=== PATIENT | male | born 1945 ===

== ENCOUNTER 2021-12-27 06:14 | Emergency (ER) | payer OTHER ==
--- OUTSIDE RECORDS SUMMARY | 2021-12-27 06:18 | XMS REPORT | Continuity of Care Document ---
:[address] [facility] t Address [address] [place] [address] Care Team Providers Name Role Phone SANJAY Attending Clinician Unavailable Bernstein_H Attending Clinician Unavailable ELIZABETH Attending Clinician Unavailable Bernstein_H Admitting Clinician Unavailable Payers Payer Name Policy Type Policy Number Effective Date Expiration Date S ource [place]IC[place]: [id number] 2007 [place] 00:00:00 [facility] [id number] Problems Condition Condition Condition Status Onset Resolution Last Treating Co mments Source Name Details Category Date Date Treatment Clinician Date History of History of Problem Resolve [facility] backache backache d [facility] [place] [facility] History of History of Problem Resolve [facility] hemorrhoid hemorrhoid d it y of s s [place] [facility] History of History of Problem Resolve [facility] hypertensi hypertensi d it y of on on [place] [facility] History of History of Problem Resolve [facility] kidney kidney d ity of disease disease [place] [facility] History of History of Problem Resolve [facility] malignant malignant d ity of neoplasm neoplasm [place] [facility] Left knee Left knee Problem Active Uni vers pain pain [facility] of [place] [facility] Primary Primary Problem Active Univers localized localized [place] of [place]oarth[place] of Physici left knee left knee ans Traumatic Traumatic Problem Active Uni vers arthritis arthritis ity of of left of left [place] knee knee Physici ans Allergies, Adverse Reactions, Alerts Allergy Allergy Status Severity Reaction(s) Onset Inactive Treating Comm ents Source Name Type Date Date Clinician morphine DA Active [facility] 03[facility]20 [facility] 00:00: e 00 [facility] codeine DA Active [facility] 5 [facility] 00:00: e 00 [facility] acetamin DA Active [facility]hen 03-20 [facility] 00:00: e 00 [facility] Aspirin Allergy Active Univers TABS to drug ity of (finding [place] ) Physici ans Morphine Allergy Active Univers Derivati to drug ity of ves (finding [place] ) Physici ans Sulfa Allergy Active Univers Drugs to drug ity of (finding [place] ) Physici ans Adhesive Allergy Active Univers Tape to ity of substanc [place] e Physici (finding ans ) Family History Family Member Diagnosis Comments Start Date Stop Date Source Mother Family history of [facility] [place] High blood pressure Physi cians (not hypertension) Mother Family history of [facility] [place] arthritis Physicians Father Family history of [facility] [place] High blood pressure Physi cians (not hypertension) Father Family history of [facility] [place] High cholesterol Physicia ns Father Family history of [facility] [place] malignant neoplasm Physic ians Father Family history of [facility] [place] Gout, joint Physicians Brother Family history of [facility] [place] High blood pressure Physi cians (not hypertension) Brother Family history of [facility] [place] High cholesterol Physicia ns Social History Smoking Status Start Date Stop Date Source Never smoked tobacco (finding) [facility] Physicians Medications Ordered Filled Start Stop Current Ordering Indication Dosage Frequency Signature Comments Components Source Medication Medication Date Date Medication? Clinician (SIG) Name Name Cozaar 100 Cozaar 100 Yes Uni vers MG Oral MG Oral ity of Tablet Tablet [place] [facility] Zocor 40 MG Zocor 40 MG Yes U nivers Oral Tablet Oral Tablet i ty of [place] [facility] Ambien 10 Ambien 10 Yes Unive rs MG Oral MG Oral ity of Tablet Tablet [place] [facility] Simvastatin Simvastatin Yes U nivers TABS TABS ity of [place] [facility] ans Vital Signs Vital Name Observation Time Observation Value Comments Source BP Systolic 2019-09-18 136 mm[Hg] [facility] 13:27:00 [place] Physician s BP Diastolic 2019-09-18 87 mm[Hg] [facility] 13:27:00 [place] [facility] Weight 2019-09-18 198 [lb_av] University 13:27:00 [place] [facility] Body Mass Index 2019-09-18 28.41 kg/m2 University o f Calculated 13:27:00 [place] [facility] Heart Rate 2019-09-18 74 /min [facility] of 13:27:00 [place] [facility] BP Systolic 2019-02-05 147 mm[Hg] Location: [facility]; [facility] 13:13:00 Position: [place] Physician s Sitting BP Diastolic 2019-02-05 81 mm[Hg] Location: [facility]; [facility] 13:13:00 Position: [place] Physician s Sitting Height 2019-02-05 70 [in_us] [facility] of 13:13:00 [place] Physician s Weight 2019-02-05 210 [lb_av] [facility] of 13:13:00 [place] [facility] s Body Mass Index 2019-02-05 30.13 kg/m2 University o f Calculated 13:13:00 [place] [facility] s Heart Rate 2019-02-05 73 /min Location: R [facility] 13:13:00 Radial; [place] [facility]ician [facility] BP Systolic 2018-12-06 132 mm[Hg] Location: [facility]; [facility] 13:52:00 Position: [place] Physician s Sitting BP Diastolic 2018-12-06 83 mm[Hg] Location: [facility] 13:52:00 Position: [place] Physician s Sitting Weight 2018-12-06 213 [lb_av] University of 13:52:00 [place] [facility] s Body Mass Index 2018-12-06 30.56 kg/m2 University o f Calculated 13:52:00 [place] Physician s Heart Rate 2018-12-06 100 /min University of 13:52:00 [place] Physician s BP Systolic 2018-05-22 137 mm[Hg] Location: [facility]; [facility] 12:25:00 Position: [place] Physician s Sitting BP Diastolic 2018-05-22 79 mm[Hg] Location: [place]; [facility] 12:25:00 Position: [place] Physician s Sitting Height 2018-05-22 70 [in_us] [facility] of 12:25:00 [place] Physician s Weight 2018-05-22 209 [lb_av] [facility] of 12:25:00 [place] [facility] s Body Mass Index 2018-05-22 29.99 kg/m2 University o f Calculated 12:25:00 [place] [facility] s Heart Rate 2018-05-22 69 /min Location: [facility]l [facility] 12:25:00 Radial; [place] [facility]ician [facility] BP Systolic 2017-11-02 125 mm[Hg] Location: [place]; [facility] 10:05:00 Position: [place] Physician s Sitting BP Diastolic 2017-11-02 83 mm[Hg] Location: R[facility]; [facility] 10:05:00 Position: [place] Physician s Sitting Weight 2017-11-02 215 [lb_av] [facility] 10:05:00 [place] [facility] s Body Mass Index 2017-11-02 30.85 kg/m2 University o f Calculated 10:05:00 [place] [facility] s Heart Rate 2017-11-02 81 /min [facility] 10:05:00 [place] [facility]ician s Procedures Procedure Date / Time Performing Clinician Source Performed [U] XRAY KNEE 3 VWS 2017-11-02 00:00:00 [facility] LEFT [id number] Physicians History of Total Knee [facility] Arthroplasty Physicians History of Prostate Bolt o [facility] Surgery Physicians History of Back Surgery [facility] Physicians Encounters Start End Encounter Admission Attending Care Care Encounter Source Date/Time Date/Time Type Type Clinicians Facility Department ID 2021-02-09 2021-02-09 Outpatient SANJAY, [facility] [id number] 00:00:00 00:00:[address] [address] 2021-01-19 2021-01-19 Outpatient [facility] [id number] [address] [place] [address] 00:00:00 00:00:[address] 2020-12-03 2020-12-03 Outpatient Bernstein_H VFP VFP [id number] [facility] 12:13:00 12:13:00 [id number] Family Practic e 2019-09-18 2019-09-18 Appointmen MARSHALL MARSH Orthopedics [id number] [facility] 13:00:00 13:00:00 tFREDDIE Liang - [place] i ty of ELIUDCECI Carvalho [facility] FREDDIE [place] Physi ci M.D. ans 2019-03-19 2019-03-19 Appointmen MARSHALL MARSH [place] 52 [id number] [facility] 13:00:00 13:00:00 FREDDIE [facility] ity [facility] FREDDIE [place], Physi ci M.DMercy ans 2019-02-05 2019-02-05 Appointmen MARSHALL MARSH [place] 50 [id number] [facility] 13:15:00 13:15:00 [facility] [place] [facility] [place] [place], Physi ci M.D. ans 2018-12-06 2018-12-06 [facility] [id number] Univers 14:00:00 14:00:00 t; FREDDIE Pagan - [place] i ty of KLINE-BAR M.D. II [place] RE, FREDDIE, Physi ci M.D. ans 2018-05-22 2018-05-22 [facility] 43 [id number] Univers 11:30:00 11:30:00 t; FREDDIE Pagan, Orthopedics ity of KLINE[facility]. [facility] FREDDIE, Physi ci M.D. ans 2018-05-01 2018[id number] Univers 10:45:00 10:45:00 t; FREDDIE Pagan, ity of KLINE-BAR M.D. [place] RE, FREDDIE, Physi ci M.D. ans 2017-11-02 2017[facility] [id number] Univers 09:30:00 09:30:00 t; FREDDIE Pagan - [place] i ty of KLINE-BAR M.D. II [place] RE, FREDDIE, Physi ci M.D. ans 2017-03-14 2017-03-14 [facility] [id number] Univers 10:45:00 10:45:00 t; FREDDIE Pagan, ity of KLINE-BAR M.D. [place] RE, FREDDIE, Physi ci M.D. ans 2017-01-19 2017-01-19 [id number] Univers 09:45:00 09:45:00 t; EDORYSA, ity of KLINE-BAR M.D. [place] RE, FREDDIE, Physi ci M.D. ans 2015-12-22 2015-12-22 [id number] Univers 11:00:00 11:00:00 t; EDORYSA, ity of KLINE-BAR M.D. [place] RE, FREDDIE, Physi ci M.D. ans Results Test Description Test Time Test Comments Results Result Sour e Comments [U] XRAY KNEE 3 2018-12-06 Images [facility] of S LEFT [id number] 14:22:00 acquired, not [place] reported on Physicians this accession number. [U] XRAY KNEE 3 2017-11-02 Images Universit y of S LEFT [id number] 10:16:00 acquired, not [place] reported on Physicians this accession number.
[2021-12-27 06:58] LABS: Absolute Lymphocytes (CBC) 1.1 K/uL (0.7-4.9); Hematocrit 37.6 % (39.6-49.0); Lymphocytes % 13.8 % (15.3-44.8); MPV 6.9 fL (7.6-11.3); RBC Red Blood Cell Count 4.26 M/uL (4.33-5.43)
[2021-12-27 06:59] LABS: Urine Blood 2+ (Negative); Urine Glucose Negative (Negative); Urine Protein Negative (Negative); Urine Specific Gravity 1.015 (1.005-1.030)
[2021-12-27 07:24] LABS: Albumin 3.4 g/dL (3.4-5.0); Bilirubin Direct 0.1 mg/dL (0-0.2); Bilirubin Total 0.4 mg/dL (0.2-1.0); Potassium 4.2 mmol/L (3.5-5.1); Protein, Total 7.3 g/dL (6.4-8.2)
--- NOTE | 2021-12-27 08:19 | RAD REPORT ---
EXAM DESCRIPTION: CTAbdomen Pelvis W Contrast - 12/27/2021 8:02 am CLINICAL HISTORY: left flank pain COMPARISON: No comparisons TECHNIQUE: CT of the abdomen and pelvis was performed. All CT scans are performed using dose optimization technique as appropriate and may include automated exposure control or mA/KV adjustment according to patient size. FINDINGS: Lower chest: Irregular pulmonary nodule in the right lower lobe with peripheral micro nodu larity. This could be metastatic disease or sequela of prior infection. Liver: Multiple low-density lesions are present in the liver. These have overall benign imaging featu res. Biliary: No biliary ductal dilatation. Stomach: No significant focal abnormality. Duodenum: No significant focal abnormality. Pancreas: No significant abnormality. Spleen: No significant abnormality. Adrenal: Left adrenal thickening but no discrete mass. Kidney/ureter: No hydronephrosis. Left renal mass invading the left renal vein and IVC. The mass has some calcifications. It measures 6.8 cm. It contacts Gerota's fascia. A couple of probable renal cyst s are noted. Retroperitoneum: Enlarged retroperitoneal lymph nodes 1 measures 10 millimeters for example. Vascular: No aneurysm. There is thrombus extending from the left renal vein into the IVC. The IVC is patent, however. Bowel: No significant focal abnormality. Peritoneum: No ascites or free air. Bladder: Grossly unremarkable. Reproductive: No adnexal masses. Left-sided varicocele. This is presumably as result of the renal mas s and renal vein invasion. Bones: No acute fracture. Multilevel degenerative changes are present in the spine. Other: n/a IMPRESSION: Left renal neoplasm consistent with renal cell carcinoma with renal vein and IVC invasio n. Enlarged retroperitoneal lymph nodes noted likely reflecting metastatic disease. Indeterminate mirta g nodule. The neoplasm contacts Gerota's fascia.
--- NOTE | 2021-12-27 08:38 | ER ---
Nurse's Notes [facility] Name: Everett Miles Age: 76 yrs Sex: Male : 1945 Arrival Date: 12/27/2021 Time: 06:18 Bed 7 Private MD: Diagnosis: Renal mass Presentation: 12/27 06:51 Chief complaint: Patient states: The patient states he is having abdominal pain. st1 Coronavirus screen: Vaccine status: Patient reports receiving the 2nd dose of the covid vaccine. Pfizer. Ebola Screen: No symptoms or risks identified at this time. Initial Sepsis Screen: Does the patient meet any 2 criteria? No. Patient's initial sepsis screen is negative. Does the patient have a suspected source of infection? No. Patient's initial sepsis screen is negative. Risk Assessment: Do you want to hurt yourself or someone else? Patient reports no desire to harm self or others. 06:55 Onset of symptoms was December 26, 2021. st1 06:55 Acuity: JEFF 3 st1 06:56 Method Of Arrival: Ambulatory st1 Triage Assessment: 06:56 General: Appears in no apparent distress. comfortable, Behavior is calm, cooperative. st1 Pain: Complains of pain in Abdomin Pain currently is 6 out of 10 on a pain scale. GI: No deficits noted. Historical: - Allergies: 06:54 Aspirin; st1 06:54 Sulfa (Sulfonamide Antibiotics); st1 06:54 Tape; st1 - PMHx: 06:54 Hypertensive disorder; Hypercholesterolemia; st1 - Immunization history:: Client reports receiving the 2nd dose of the Covid vaccine, Pfizer Pneumococcal vaccine is not up to date, Flu vaccine is up to date. - Social history:: Smoking status: Patient denies any tobacco usage or history of. Patient/guardian denies using alcohol, street drugs, IV drugs. Screenin:36 Abuse screen: Denies threats or abuse. Nutritional screening: No deficits noted. st1 Tuberculosis screening: No symptoms or risk factors identified. Fall Risk None identified. No secondary diagnosis (0 pts). IV access (20 points). Ambulatory Aid- None/Bed Rest/Nurse Assist (0 pts). Gait- Normal/Bed Rest/Wheelchair (0 pts) Mental Status- Oriented to own ability (0 pts). Total Valverde Fall Scale indicates No Risk (0-24 pts). Assessment: 06:57 GI: GI: Bowel sounds present X [address]ads[address] st1 07:57 Reassessment: Patient appears in no apparent distress at this time. Patient and/or ph family updated on plan of care and expected duration. Pain level reassessed. Patient is alert, oriented x 3, equal unlabored respirations, skin warm/dry/pink. Pt taken to CT. 08:03 Reassessment: transported to CT scan via Wheelchair. ww 08:49 Reassessment: Patient appears in no apparent distress at this time. Patient and/or ph family updated on plan of care and expected duration. Pain level reassessed. Patient is alert, oriented x 3, equal unlabored respirations, skin warm/dry/pink. Pt d/c home. Vital Signs: 07:09 BP 112 / 73; Pulse 72; Resp 18; Pulse Ox 99% on R/A; ph 08:26 Temp 97.5(TE); ph 08:49 BP 118 / 78; Pulse 71; Resp 18; Temp 97.4; Pulse Ox 99% on R/A; ph ED Course: 06:18 Patient arrived in ED. ja2 06:28 Ang Jordan PA is PHCP. [facility] 06:28 Hua Gomez MD is Attending Physician. [facility] 06:36 Sophia Harrell, DARSHAN is Primary Nurse. st1 06:45 Inserted saline lock: 20 gauge in right antecubital area, using aseptic technique. st1 06:50 Basic Metabolic Panel Sent. st1 06:50 Lipase Sent. st1 06:50 Hepatic Function Sent. st1 06:50 CBC with Diff Sent. st1 06:50 Basic Metabolic Panel Sent. st1 06:50 CBC with Automated Diff Sent. st1 06:56 Triage completed. st1 06:56 Arm band placed on right wrist. st1 06:57 No provider procedures requiring assistance completed. st1 06:57 Patient has correct armband on for positive identification. Placed in gown. Bed in low st1 position. Call light in reach. Side rails up X 1. Pulse ox on. NIBP on. Verbal reassurance given. 08:02 CT Abd/Pelvis - IV Contrast Only In Process Unspecified. EDMS 08:49 IV discontinued, intact, bleeding controlled, No redness/swelling at site. Pressure ph dressing applied. Administered Medications: No medications were administered Outcome: 08:37 Discharge ordered by MD. evans 08:49 Discharged to home ambulatory. ph 08:49 Condition: good 08:49 Discharge instructions given to patient, Instructed on discharge instructions, follow up and referral plans. Demonstrated understanding of instructions, follow-up care. 08:50 Patient left the ED. ph Signatures: Dispatcher [employer] EDMS Ang Jordan PA PA jmm Hall, Patricia, RN RN [facility] Whitney, RN RN Sophia Harrell RN RN st1 Corrections: (The following items were deleted from the chart) 06:57 06:51 Method Of Arrival: Ambulatory st1 st1
--- NOTE | 2021-12-27 08:38 | EDPHYS ---
Physician Documentation [facility] Name: Everett Miles Age: 76 yrs Sex: Male : 1945 Arrival Date: 12/27/2021 Time: 06:18 Bed 7 Private MD: MARIANO Physician Hua Gomez HPI: 12/27 06:35 This 76 yrs old Male presents to ER via Ambulatory with complaints of Low Back Pain, jmm Abdominal Pain. 06:35 The patient presents with pain that is chronic, with no known mechanism of injury. The jmm symptoms are located in the left low back and left mid back. The pain radiates. 07:39 Onset: The symptoms/episode began/occurred gradually. Modifying factors: The patient jmm symptoms are alleviated by nothing, the patient symptoms are aggravated by any movement. Associated signs and symptoms: Pertinent negatives: fever. This is a 76-year-old male with history of hypertension and hyperlipidemia the presents emerged department with complaints of left lower back pain which he states is chronic cannot give an exact time of onset. But states that pain approximately 3 weeks ago he developed hematuria and was prescribed oral antibiotics. Patient states he finished that course but states last night developed increased pain to the left lower back radiating to the left leg but it also states having some bilateral epigastric pain to the left upper and right upper quadrant. Denies fever, chest pain, shortness of breath, vomiting, diarrhea. Denies hematochezia. Historical: - Allergies: 06:54 Aspirin; st1 06:54 Sulfa (Sulfonamide Antibiotics); st1 06:54 Tape; st1 - PMHx: 06:54 Hypertensive disorder; Hypercholesterolemia; st1 - Immunization history:: Client reports receiving the 2nd dose of the Covid vaccine, Pfizer Pneumococcal vaccine is not up to date, Flu vaccine is up to date. - Social history:: Smoking status: Patient denies any tobacco usage or history of. Patient/guardian denies using alcohol, street drugs, IV drugs. ROS: 07:39 Constitutional: Negative for fever, chills, and weight loss, Cardiovascular: Negative jmm for chest pain, palpitations, and edema, Respiratory: Negative for shortness of breath, cough, wheezing, and pleuritic chest pain. 07:39 Back: Positive for pain with movement. 07:39 : Positive for urinary symptoms, Negative for testicular pain 07:39 All other systems are negative. Exam: 07:39 Constitutional: This is a well developed, well nourished patient who is awake, alert, jmm and in no acute distress. Head/Face: atraumatic. Eyes: EOMI, no conjunctival erythema appreciated ENT: Moist Mucus Membranes Neck: Trachea midline, Supple Chest/axilla: Normal chest wall appearance and motion. Cardiovascular: Regular rate and rhythm. No edema appreciated Respiratory: Normal respirations, no respiratory distress appreciated 07:39 Back: Normal ROM Skin: General appearance color normal MS/ Extremity: Moves all extremities, no obvious deformities appreciated, no edema noted to the lower extremities Neuro: Awake and alert Psych: Behavior is normal, Mood is normal, Patient is cooperative and pleasant 07:39 Abdomen/GI: Inspection: abdomen appears normal, Bowel sounds: normal, Palpation: soft, mild abdominal tenderness, in the right upper quadrant and left upper quadrant. 07:39 Neuro: Extensor hallucis longus intact bilaterally. 07:39 Psych: Behavior/mood is pleasant, cooperative. Vital Signs: 07:09 BP 112 / 73; Pulse 72; Resp 18; Pulse Ox 99% on R/A; ph 08:26 Temp 97.5(TE); ph 08:49 BP 118 / 78; Pulse 71; Resp 18; Temp 97.4; Pulse Ox 99% on R/A; ph MDM: 06:35 Patient medically screened. [facility] 08:36 Data reviewed: vital signs, nurses notes. Counseling: I had a detailed discussion with [facility] the patient and/or guardian regarding: the historical points, exam findings, and any diagnostic results supporting the discharge/admit diagnosis, lab results, radiology results, the need for outpatient follow up, to return to the emergency department if symptoms worsen or persist or if there are any questions or concerns that arise at home. ED course: Reviewed labs and imaging studies with the patient a long with discussion of left renal mass which is most likely malignant. Patient stated that he would prefer to follow with his primary care provider to ultimately coordinate care. Patient's labs were unremarkable. Vital signs are normal. I do not suspect pyelonephritis or an acutely threatening process.. 12/27 06:39 Order name: Basic Metabolic Panel [facility] 12/27 06:39 Order name: CBC with Diff [facility] 12/27 06:39 Order name: Hepatic Function; Complete Time: 07:53 [facility] 12/27 06:39 Order name: Lipase; Complete Time: 07:53 [facility] 12/27 06:39 Order name: Basic Metabolic Panel; Complete Time: 07:53 EDMS 12/27 06:39 Order name: CBC with Automated Diff; Complete Time: 07:53 EDMS 12/27 06:39 Order name: IV Saline Lock; Complete Time: 06:50 [facility] 12/27 06:39 Order name: Labs collected and sent; Complete Time: 06:50 [facility] 12/27 06:44 Order name: Urine Dipstick-Ancillary (obtain specimen); Complete Time: 06:58 [facility] 12/27 06:44 Order name: CT Abd/Pelvis - IV Contrast Only; Complete Time: 08:26 [facility] 12/27 06:59 Order name: Urine Dipstick-Ancillary; Complete Time: 07:53 EDMS Administered Medications: No medications were administered Disposition: 19:11 Co-signature as Attending Physician, Hua Gomez MD. [email or web address] Disposition Summary: 12/27/21 08:37 Discharge Ordered Location: Home [facility] Condition: Stable [facility] Diagnosis - Renal mass [facility] Followup: [facility] - With: Private Physician - When: 2 - 3 days - Reason: Recheck today's complaints, Continuance of care, Re-evaluation by your physician Discharge Instructions: - Discharge Summary Sheet [facility] - Renal Mass [facility] Forms: - Medication Reconciliation Form [facility] - Thank You Letter [facility] - Antibiotic Education [facility] - Prescription Opioid Use [facility] Signatures: Dispatcher [employer] EDMS Ang Jordan PA PA jmm Holmes, Maurice, MD MD [email or web address] Sophia Harrell, RN RN st1
[2021-12-27 08:56] VITALS: O2SAT 99
[2021-12-27 08:58] VITALS: BP 118/78; TEMP 97.4
== END 2021-12-27 08:50 | disposition home or self-care (01) ==
LOC: ER 06:14
DX: N28.89 Other specified disorders of kidney and ureter (principal); I10 Essential (primary) hypertension; Z88.2 Allergy status to sulfonamides; Z88.6 Allergy status to analgesic agent; Z91.048 Other nonmedicinal substance allergy status
CPT/HCPCS: 85025; 80048; 36415; 80076; 81003; 83690; 74177; 99284; Q9967